=== PATIENT | female | born 1995 | race Two or more races ===

== ENCOUNTER 2017-10-28 00:59 | Observation (INO) | payer OTHER ==
[2017-10-28] MEDS ORDERED: NS 0.9% 1000 ML* 1,000 ML IV ONE (01:18)
[2017-10-28] MEDS ORDERED: Morphine INJ* 4 MG/ML 1 ML CARPUJECT IV ONE ×2 (01:18→01:37)
[2017-10-28] MEDS ORDERED: Ondansetron INJ* 2 MG/ML VIAL IV ONE (01:18)
[2017-10-28 01:29] LABS: ABS Basophils 0.1 10^3/ul (0-0.2); ABS Eosinophils 0 10^3/ul (0-0.6); ABS Lymphocytes 2.4 10^3/ul (1.0-4.8); ABS Monocytes 0.5 10^3/ul (0-0.8); ABS Neutrophils 10.6 10^3/ul (1.5-7.7); ABS Nucleated RBC 0 10^3/ul; Eosinophil % 0.2 % (0-6); Hematocrit 41 % (35-47); Hemoglobin 14.3 g/dl (12.0-16.0); Lymphocyte % 17.8 % (25-47); Mean Corpuscular HGB Conc 35 g/dl (31-36); Mean Corpuscular Hemoglobin 29 pg (27-31); Mean Corpuscular Volume 81 fL (80-97); Mean Platelet Volume 8 um3 (7.4-10.4); Nucleated Red Blood Cells % 0.2; Platelet Count 343 10^3/ul (150-450); Red Blood Count 5.01 10^6/ul (4.0-5.4); Red Cell Distribution Width 14 % (10.5-15); White Blood Count 13.6 10^3/ul (3.5-10.8)
[2017-10-28 01:44] LABS: INR 1.01 (0.77-1.02)
[2017-10-28 01:48] LABS: EGFR Non-African American 67.2 (>60)
--- NOTE | 2017-10-28 02:13 | PN ---
Progress Note - Progress Note Date of Service: 10/28/17 Note: pelvic done by Rosemarie CROWELL external exam normal. speculum exam: scant amount of blood and normal vaginal discharge bimanual: nontender adnexa, nontender cervix, no CMT
[2017-10-28] MEDS ORDERED: Iohexol 300* (CONTRAST) 10 ML SDV IV ONE (03:20)
[2017-10-28 04:20] LABS: Urine Appearance Clear; Urine Blood Negative (Negative); Urine Color Yellow; Urine Ketones 2+ (Negative); Urine Protein Negative (Negative); Urine Specific Gravity 1.039 (1.010-1.030); Urine Urobilinogen Negative (Negative)
[2017-10-28] MEDS ORDERED: oxyCODONE/Acetamin 5/325 MG* TAB PO ONE (06:49)
[2017-10-28 07:03] LABS: Hematocrit 35 % (35-47); Hemoglobin 12.5 g/dl (12.0-16.0); Mean Corpuscular HGB Conc 35 g/dl (31-36); Mean Corpuscular Hemoglobin 29 pg (27-31); Mean Corpuscular Volume 81 fL (80-97); Mean Platelet Volume 8 um3 (7.4-10.4); Platelet Count 290 10^3/ul (150-450); Red Blood Count 4.37 10^6/ul (4.0-5.4); Red Cell Distribution Width 13 % (10.5-15); White Blood Count 22.7 10^3/ul (3.5-10.8)
[2017-10-28 07:59] LABS: Monocytes % 4 % (0-13)
--- NOTE | 2017-10-28 08:09 | RAD ---
INDICATION: Bilateral pelvic pain COMPARISON: Same day CT of the abdomen and pelvis TECHNIQUE: Real-time transabdominal only ultrasound examination of the female pelvis including grayscale and Doppler color flow imaging. FINDINGS: Uterus: The uterus is normal in size and echogenicity measuring 10.2 x 5.3 x 5.3 cm. The endometrial stripe is smooth and uniform measuring 13 mm in thickness. Ovaries: The right and left ovary measure 7.0 x 4.2 x 5.9 cm and 5.2 x 2.2 x 3.4 cm, respectively. Normal arterial and venous waveforms are identified. In the right ovary there is an avascular and heterogeneously echogenic structure measuring 5.0 x 4.4 x 4.1 cm. There is no free fluid in the cul-de-sac. IMPRESSION: Sonographic findings are most consistent with a 5 cm right hemorrhagic/involuting follicle in a woman of this age.
--- NOTE | 2017-10-28 08:17 | RAD ---
CLINICAL HISTORY: Abdominal pain, appendicitis COMPARISON: Ultrasound dated October 28, 2017 TECHNIQUE: Multiple contiguous axial CT scans were obtained of the abdomen and pelvis after the administration of intravenous contrast. Coronal and sagittal multiplanar reformations are submitted for review. Oral contrast was administered. Delayed images were obtained through the abdomen and pelvis. FINDINGS: LUNG BASES: The lung bases are clear. LIVER: The liver is normal in shape, size, contour, and attenuation. BILE DUCTS: There is no intrahepatic or extrahepatic biliary dilatation. GALLBLADDER: The gallbladder is normal, without pericholecystic inflammatory change. PANCREAS: The pancreas is normal, without mass or ductal dilatation. SPLEEN: Normal in size and appearance. UPPER GI TRACT: Evaluation of the gastrointestinal tract is limited by incomplete gastric distention. The upper GI tract is unremarkable. SMALL BOWEL AND MESENTERY: The small bowel is normal in contour, course, and caliber. There is no obstruction or dilatation. COLON: There is post surgical change to the colon. There is gaseous distention of the appendix is at the upper limits of normal in caliber. The tip of the appendix is adjacent to a right ovarian cyst and is not well evaluated, with stranding of the adjacent fat. ADRENALS: Normal bilaterally. KIDNEYS: The kidneys are normal in shape, size, contour, and axis. There is no hydronephrosis or nephrolithiasis. BLADDER: The bladder is smooth in contour. PELVIC ORGANS: There is focal thickening of the endometrium towards the fundus. There is a 4.9 cm right ovarian cyst. The left adnexa appear heterogeneous and somewhat edematous. There is stranding of the pelvic fat diffusely. Gas density is noted within the endocervix. AORTA: The aorta is normal. IVC: Unremarkable LYMPH NODES: There is no lymphadenopathy by size criteria. ABDOMINAL WALL: There is no evidence for abdominal wall hernia. BONES AND SOFT TISSUES: Unremarkable OTHER: There is a small amount of ascites measuring simple fluid in attenuation IMPRESSION: 1. THERE IS A 4.1 CM RIGHT OVARIAN CYST. 2. THERE IS INFLAMMATORY CHANGE WITHIN THE PELVIS, INCLUDING THE LEFT ADNEXA. 3. THERE IS A SMALL AMOUNT OF ASCITES, GREATER THAN EXPECTED FOR PHYSIOLOGIC FLUID. 4. THERE IS GASEOUS DISTENTION OF THE APPENDIX, THOUGH THE TIP OF THE APPENDIX IS NOT WELL VISUALIZED AND IS SURROUNDED BY INFLAMMATORY CHANGE WHICH MAY BE SECONDARY TO THE INFLAMMATORY CHANGES NOTED WITHIN THE PELVIS. 5. THERE IS FOCAL THICKENING OF THE ENDOMETRIUM TOWARDS THE FUNDUS. THERE IS GAS DENSITY WITHIN THE ENDOCERVIX. 6. THE OVERALL IMPRESSION IS OF AN INFLAMMATORY PROCESS CENTERED WITHIN THE PELVIS. THIS IS MOST LIKELY A PRIMARY PELVIC INFLAMMATORY PROCESS, INCLUDING FROM PELVIC INFLAMMATORY DISEASE. THE DIFFERENTIAL DOES INCLUDE INFLAMMATION SECONDARY TO A TIP APPENDICITIS, THOUGH THIS IS CONSIDERED LESS LIKELY. THESE FINDINGS WERE REVIEWED AND DISCUSSED WITH DR. OWEN AT APPROXIMATELY 8:10 AM ON OCTOBER 28, 2017
[2017-10-28] MEDS ORDERED: Ondansetron INJ* 2 MG/ML VIAL IV PRN (10:32)
[2017-10-28] MEDS: DOXYcycline CAP(*) 100 MG PO SCH ×2 (12:01→20:43)
[2017-10-28] MEDS: ceFOXitin 2 GM IVPREMIX* 2 GM/50 ML BAG IVPB SCH ×3 (12:02→23:29)
[2017-10-28] MEDS: Ketorolac INJ* 30 MG/ML 1 ML VIAL IV PUSH PRN ×2 (16:58→23:34)
--- NOTE | 2017-10-28 17:45 | HP ---
HISTORY AND PHYSICAL: DATE OF ADMISSION: 10/28/17 HISTORY OF PRESENT ILLNESS: This patient is a 22-year-old 0 female, who presented tonight with acute onset of right lower quadrant pelvic pain, which started while she was in the shower at about 11 o'clock at night. The patient reports she had no symptoms whatsoever prior to this. She has been feeling well throughout the day and had not ever had pain like this before. The pain was persistent so she presented to the emergency department and at that time, she was still complaining of 9-10/10 pain. The patient denied any fever or chills. She did have emesis x3 during the worst of the pain. The patient's TOWERMAN history is only notable for history of vaginal surgery for resection of a transverse vaginal septum. A second surgery was required with a graft placement. She reports that she was instructed to irrigate the vagina with saline on a regular basis due to discharge from the graft. She irrigated with the saline most recently tonight. The patient denies any sexual activity for about the last year, but she is in a developing relationship. She does not use any contraception at this time. PAST MEDICAL HISTORY: None. PAST SURGICAL HISTORY: Vaginal surgery as above for transverse vaginal septum. PAST OB HISTORY: 0. PAST TOWERMAN HISTORY: No history of sexually transmitted infections and not using any contraception. Currently not sexually active. MEDICATIONS: None. ALLERGIES: No known drug allergies. 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 She denies any tobacco, alcohol, or illicit drug use. REVIEW OF SYSTEMS: General: No fever or chills. No recent fatigue. Cardiovascular: Negative. Respiratory: Negative. GI: Emesis x3, currently without any nausea. : No abnormal discharge other than her what is normal for her. Neuro: Negative. Musculoskeletal: Negative. PHYSICAL EXAMINATION VITAL SIGNS: 97.4, pulse 80, respiratory rate 16, O2 saturation 99% on room air , blood pressure 111/74. GENERAL: The patient is somewhat drowsy after several doses of pain medications , but she is providing a clear history. Appears fairly comfortable in bed. LUNGS: Clear to auscultation bilaterally. CARDIOVASCULAR: Regular rate and rhythm. ABDOMEN: Soft. Diffuse tenderness throughout the abdomen especially in the lower aspect and worst in the right lower quadrant. Bowel sounds positive. NEURO: Acute and oriented x3. PELVIC: Examination deferred as this was already done by previous ER provider. DIAGNOSTIC STUDIES/LAB DATA: On admission, white blood cell count 13.6 with 78 % neutrophils, hematocrit 41, platelets 343. Followup CBC shows white blood cell count of 22.7, 85% neutrophils, hematocrit 35, and platelets 290. HCG negative. Urinalysis with specific gravity of 1.039 and 2+ ketones, otherwise negative. Gonorrhea and chlamydia testing is pending. CT performed noted tip of the appendix with some stranding of fat and gas but no clear signs of acute appendicitis. Right ovary with 4.9-cm cyst. Left adnexa somewhat edematous and there is notation of stranding of pelvic fat consistent with inflammation. No significant lymphadenopathy and focal area of thickening at the fundus of the endometrium. Followup pelvic ultrasound noted a right ovary measuring 7 x 5.9 x 4.2 cm with a 5 x 4.4 x 4.1 likely hemorrhagic cyst, endometrial stripe measured 13 mm. IMPRESSION: A 22-year-old 0 with acute onset of pelvic pain and evidence of pelvic inflammation. The ER physician discussed the patient with Dr. Goff of General Surgery, who reviewed the CT and did not feel there was any significant concern for appendicitis. Otherwise, the most likely apparent cause for the patient's pain and leukocytosis is pelvic inflammatory disease, possibly a tuboovarian abscess. The decrease in hematocrit does not seem consistent with bleeding, but more likely dilutional. PLAN: I discussed the findings with the patient at length today. Considering the patient's pain and potential for tuboovarian abscess, we will admit for IV antibiotics today. We will start with cefoxitin and doxycycline. The patient is very concerned about missing school and classes start again tomorrow morning. She understands we will have to determine how she is doing at that point. If she is significantly improved, we will likely discharge with continued oral antibiotics. I will also discuss the potential for drainage of the cyst versus abscess in the pelvis via Radiology's percutaneous approach. [id number]/[facility] #: [id number] [facility]
[2017-10-28] MEDS: oxyCODONE/Acetamin 5/325 MG* TAB PO PRN (21:26)
--- NOTE | 2017-10-29 04:42 | ED ---
Marii Alex Thomas, scribed for Iraj Figueroa on 10/28/17 at 0118 . Abdominal Pain/Female - HPI Summary HPI Summary: This patient is a 22 year old F presenting to ED with a chief complaint of lower abdominal pain since 0000 today. The pt had a pelvic surgery in the past and did irrigation earlier tonight. The patient rates the pain 10/10 in severity. Symptoms aggravated and alleviated by nothing. Patient reports vomiting three times. Patient denies fever. - History of Current Complaint Chief Complaint: EDAbdPain Stated Complaint: ABD PAIN Time Seen by Provider: 10/28/17 01:07 Hx Obtained From: Patient Onset/Duration: Gradual Onset, Lasting Hours, Still Present Severity Currently: Severe Pain Intensity: 10 Pain Scale Used: 0-10 Numeric Location: Diffuse Aggravating Factor(s): Nothing Alleviating Factor(s): Nothing Associated Signs and Symptoms: Positive: Other: - Patient reports vomiting three times. Patient denies fever. Allergies/Adverse Reactions: Allergies Allergy/AdvReac Type Severity Reaction Status Date / Time No Known Allergies Allergy Verified 10/28/17 01:03 PMH/Surg Hx/FS Hx/Imm Hx Endocrine/Hematology History: Denies: Hx Diabetes Cardiovascular History: Denies: Hx Hypertension Infectious Disease History: No Infectious Disease History: Denies: Traveled Outside the [place] in Last 30 Days - Family History Known Family History: Negative: Hypertension, Diabetes - Social History Alcohol Use: None Hx Tobacco Use: No Review of Systems Negative: Fever Positive: Vomiting All Other Systems Reviewed And Are Negative: Yes Physical Exam - Summary Physical Exam Summary: Appearance: Well appearing, no pain distress Skin: warm, dry, reflects adequate perfusion Head/face: normal Eyes: EOMI, WILIAN ENT: normal Neck: supple, non-tender Respiratory: CTA, breath sounds present Cardiovascular: RRR, pulses symmetrical Abdomen: soft, diffuse tenderness in abdomen Bowel: present Musculoskeletal: normal, strength/ROM intact Neuro: normal, sensory motor intact, A&Ox3 Triage Information Reviewed: Yes Vital Signs On Initial Exam: Initial Vitals Temp Pulse Resp BP Pulse Ox 97.4 F 84 20 99/61 100 10/28/17 00:59 10/28/17 00:59 10/28/17 00:59 10/28/17 00:59 10/28/17 00:59 Vital Signs Reviewed: Yes Diagnostics - Vital Signs Vital Signs Temp Pulse Resp BP Pulse Ox 10/28/17 00:59 97.4 F 84 20 99/61 100 - Laboratory Lab Results: Lab Results 10/28/17 10/28/17 10/28/17 Range/Units 01:15 01:15 01:15 WBC 13.6 H (3.5-10.8) 10^3/ul RBC 5.01 (4.0-5.4) 10^6/ul Hgb 14.3 (12.0-16.0) g/dl Hct 41 (35-47) % MCV 81 (80-97) fL MCH 29 (27-31) pg MCHC 35 (31-36) g/dl RDW 14 (10.5-15) % Plt Count 343 (150-450) 10^3/ul MPV 8 (7.4-10.4) um3 Neut % (Auto) 78.0 (38-83) % Lymph % (Auto) 17.8 L (25-47) % [place] % (Auto) 3.6 (1-9) % Eos % (Auto) 0.2 (0-6) % Baso % (Auto) 0.4 (0-2) % Absolute Neuts (auto) 10.6 H (1.5-7.7) 10^3/ul Absolute Lymphs (auto) 2.4 (1.0-4.8) 10^3/ul Absolute Monos (auto) 0.5 (0-0.8) 10^3/ul Absolute Eos (auto) 0 (0-0.6) 10^3/ul Absolute Basos (auto) 0.1 (0-0.2) 10^3/ul Absolute Nucleated RBC 0 10^3/ul Immature Gran % (0-9) % Neutrophils % (38-83) % Band Neutrophils % (0-8) % Lymphocytes % (25-47) % Reactive Lymphs % (0-6) % Monocytes % (0-13) % Eosinophils % (0-6) % Basophils % (0-2) % Nucleated RBC % 0.2 Abs Neuts (Manual) (1.5-7.7) 10^3/ul Abs Monocytes (Manual) (0-0.8) 10^3/ul Absolute Eos (Manual) (0-0.6) 10^3/ul Abs Basophils (Manual) (0-0.2) 10^3/ul Normal RBC Morphology (Normal) INR (Anticoag Therapy) 1.01 (0.77-1.02) APTT 22.4 L (26.0-36.3) seconds Sodium 135 (133-145) mmol/L Potassium 3.4 L (3.5-5.0) mmol/L Chloride 100 L (101-111) mmol/L Carbon Dioxide 23 (22-32) mmol/L Anion Gap 12 H (2-11) mmol/L BUN 16 (6-24) mg/dL Creatinine 1.02 H (0.51-0.95) mg/dL Est GFR ( Amer) 86.4 (>60) Est GFR (Non-Af Amer) 67.2 (>60) BUN/Creatinine Ratio 15.7 (8-20) Glucose 120 H (70-100) mg/dL Calcium 9.9 (8.6-10.3) mg/dL Total Bilirubin 0.50 (0.2-1.0) mg/dL AST 15 (13-39) U/L ALT 9 (7-52) U/L Alkaline Phosphatase 45 (34-104) U/L Total Protein 7.7 (6.4-8.9) g/dL Albumin 4.4 (3.2-5.2) g/dL Globulin 3.3 (2-4) g/dL Albumin/Globulin Ratio 1.3 (1-3) Lipase 24 (11.0-82.0) U/L Beta HCG, Quant < 0.60 mIU/mL Urine Color Urine Appearance Urine pH (5-9) Ur Specific [place] (1.010-1.030) Urine Protein (Negative) Urine Ketones (Negative) Urine Blood (Negative) Urine Nitrate (Negative) Urine Bilirubin (Negative) Urine Urobilinogen (Negative) Ur Leukocyte Esterase (Negative) Urine Glucose (Negative) Urine Ascorbic Acid (Negative) C.trachomatis (Amp Det) (Negative) N.gonorrhoeae (Amp Det) (Negative) T.vaginalis (Amp Det) (Negative) 10/28/17 10/28/17 10/28/17 Range/Units 02:09 04:10 06:56 WBC 22.7 H (3.5-10.8) 10^3/ul RBC 4.37 (4.0-5.4) 10^6/ul Hgb 12.5 (12.0-16.0) g/dl Hct 35 (35-47) % MCV 81 (80-97) fL MCH 29 (27-31) pg MCHC 35 (31-36) g/dl RDW 13 (10.5-15) % Plt Count 290 (150-450) 10^3/ul MPV 8 (7.4-10.4) um3 Neut % (Auto) Not Reportable (38-83) % Lymph % (Auto) Not Reportable (25-47) % [place] % (Auto) Not Reportable (1-9) % Eos % (Auto) Not Reportable (0-6) % Baso % (Auto) Not Reportable (0-2) % Absolute Neuts (auto) Not Reportable (1.5-7.7) 10^3/ul Absolute Lymphs (auto) Not Reportable (1.0-4.8) 10^3/ul Absolute Monos (auto) Not Reportable (0-0.8) 10^3/ul Absolute Eos (auto) Not Reportable (0-0.6) 10^3/ul Absolute Basos (auto) Not Reportable (0-0.2) 10^3/ul Absolute Nucleated RBC Not Reportable 10^3/ul Immature Gran % 5 (0-9) % Neutrophils % 85 H (38-83) % Band Neutrophils % 5 (0-8) % Lymphocytes % 4 L (25-47) % Reactive Lymphs % 2 (0-6) % Monocytes % 4 (0-13) % Eosinophils % 0 (0-6) % Basophils % 0 (0-2) % Nucleated RBC % Not Reportable Abs Neuts (Manual) 19.3 H (1.5-7.7) 10^3/ul Abs Monocytes (Manual) 0.9 H (0-0.8) 10^3/ul Absolute Eos (Manual) 0 (0-0.6) 10^3/ul Abs Basophils (Manual) 0 (0-0.2) 10^3/ul Normal RBC Morphology Normal (Normal) INR (Anticoag Therapy) (0.77-1.02) APTT (26.0-36.3) seconds Sodium (133-145) mmol/L Potassium (3.5-5.0) mmol/L Chloride (101-111) mmol/L Carbon Dioxide (22-32) mmol/L Anion Gap (2-11) mmol/L BUN (6-24) mg/dL Creatinine (0.51-0.95) mg/dL Est GFR ( Amer) (>60) Est GFR (Non-Af Amer) (>60) BUN/Creatinine Ratio (8-20) Glucose (70-100) mg/dL Calcium (8.6-10.3) mg/dL Total Bilirubin (0.2-1.0) mg/dL AST (13-39) U/L ALT (7-52) U/L Alkaline Phosphatase (34-104) U/L Total Protein (6.4-8.9) g/dL Albumin (3.2-5.2) g/dL Globulin (2-4) g/dL Albumin/Globulin Ratio (1-3) Lipase (11.0-82.0) U/L Beta HCG, Quant mIU/mL Urine Color Yellow Urine Appearance Clear Urine pH 6.0 (5-9) Ur Specific [place] 1.039 H (1.010-1.030) Urine Protein Negative (Negative) Urine Ketones 2+ H (Negative) Urine Blood Negative (Negative) Urine Nitrate Negative (Negative) Urine Bilirubin Negative (Negative) Urine Urobilinogen Negative (Negative) Ur Leukocyte Esterase Negative (Negative) Urine Glucose Negative (Negative) Urine Ascorbic Acid * H (Negative) C.trachomatis (Amp Det) Negative (Negative) N.gonorrhoeae (Amp Det) Negative (Negative) T.vaginalis (Amp Det) Negative (Negative) Result Diagrams: 10/28/17 06:56 10/28/17 01:15 Lab Statement: Any lab studies that have been ordered have been reviewed, and results considered in the medical decision making process. - CT abd/pelvis CT Interpretation Completed By: Radiologist - CT abd/pelvis reveals 4.4 cm right ovarian cyst. Small free fluid cul-de-sac, left adnexa and Morisons pouch , probably physiologic. Slightly irregular endometrial stripe contour at uterine fundus, possibly arcuate uterus. Surgical changes proximal sigmoid color. No bowel obstruction, colitis or free air. Normal appendix. Unremarked pancreas, kidneys and gallbladder. Transitional lumbosacral vertebra. ED physician has reviewed this radiology report. - Additional Comments Diagnostic Additional Comments: Pelvic Ultrasound: Interpreted by radiologist. Impression: No ovarian torsion. Color flow bilterally with appropriate arterial and venous waveforms on the right and arterial waveforms on the left. Enlarged right ovary measuring 7.0 x 5.9 x 4.2 cm and containing a 5.0 x 4.4 x 4.1 cm hemorrhagic cyst. Slightly enlarged left ovary, 5.2 x 3.4 x 2.2 cm. No free fluid. Normal uterus. Endometrial stripe complex 13 mm thick. Bladder not well seen. Patient declined transvaginal exam. Dr. Figueroa has reviewed this report. Abdominal Pain Fem Course/Dx - Course Course Of Treatment: This patient is a 22 year old F presenting to ED with a chief complaint of lower abdominal pain since 0000 today. Radiology included a CT abd/pelvis and a US pelvic, both reveal a right ovarian cyst. In the ED course the patient was given morphine and Zofran. I consulted with THU Palma, who advises repeat CBC and further observation. The patient will be a sign out to Dr. Duran pending labs. - Diagnoses Differential Diagnosis: Positive: Appendicitis, Diverticulitis, Ovarian Cyst, Renal Colic, Urinary Tract Infection Provider Diagnoses: PID (acute pelvic inflammatory disease) - Provider Notifications Discussed Care Of Patient With: Nancy Chauhan Time Discussed With Above Provider: 06:53 Instructed by Provider To: Other - THU Palam, advises repeat CBC and further observation. Discharge - Discharge Plan Condition: Stable Disposition: OTHER Discharge Disposition Comment: Sign out to Dr. Duran pending labs. The documentation as recorded by the Marii lr Thomas accurately reflects the service I personally performed and the decisions made by me, Iraj Figueroa.
[2017-10-29] MEDS: ceFOXitin 2 GM IVPREMIX* 2 GM/50 ML BAG IVPB SCH ×4 (05:34→23:26)
[2017-10-29 05:56] LABS: ABS Basophils 0 10^3/ul (0-0.2); ABS Eosinophils 0.3 10^3/ul (0-0.6); ABS Lymphocytes 1.6 10^3/ul (1.0-4.8); ABS Monocytes 1.1 10^3/ul (0-0.8); ABS Neutrophils 11.8 10^3/ul (1.5-7.7); ABS Nucleated RBC 0 10^3/ul; Eosinophil % 1.9 % (0-6); Hematocrit 33 % (35-47); Hemoglobin 11.6 g/dl (12.0-16.0); Lymphocyte % 10.5 % (25-47); Mean Corpuscular HGB Conc 35 g/dl (31-36); Mean Corpuscular Hemoglobin 29 pg (27-31); Mean Corpuscular Volume 82 fL (80-97); Mean Platelet Volume 8 um3 (7.4-10.4); Nucleated Red Blood Cells % 0.2; Platelet Count 250 10^3/ul (150-450); Red Blood Count 4.01 10^6/ul (4.0-5.4); Red Cell Distribution Width 13 % (10.5-15); White Blood Count 14.8 10^3/ul (3.5-10.8)
--- NOTE | 2017-10-29 08:38 | PN ---
Progress Note - Progress Note Date of Service: 10/29/17 SOAP: Subjective: []22 yo with tentative diagnosis of pid. pt feeling a little better this am . pain is improved though still present. + flatus. pt anxious to leave for classes [place] . Objective: [vss afebrile] abdomen soft but tender especially in rlq + BS. WBC DOWN TO 14 FROM 22. GC /CHLAMYDIA /TRICH IS NEGAtive Assessment: []resolving pid Plan: []best if pt stays for 48hr iv antibiotics . pt would like to be discharged later today. explained that full 48 hrs would make it less likely to be readmitted. will reassess her this evening. will switch from toradol to motrin today. will call in oral regimen
[2017-10-29] MEDS: DOXYcycline CAP(*) 100 MG PO SCH ×2 (09:28→20:24)
[2017-10-29] MEDS: Ibuprofen TAB* 600 MG PO PRN ×3 (09:31→23:30)
--- NOTE | 2017-10-29 17:38 | ED ---
Robin Alex Angela, scribed for Yoni Duran MD on 10/28/17 at 0719 . Progress - Progress Note Progress Note: This pt was signed out by Dr. Figueroa, pending disposition, awaiting repeat CBC. Pt is a 22 y/o female presenting to [facility] c/o lower abdominal pain since 0000 today. The pt had a pelvic surgery in the past and did irrigation earlier tonight. Physical Exam: VITAL SIGNS: Reviewed. GENERAL: Patient is a well-developed and nourished female who is lying comfortable in the stretcher. Patient is not in any acute respiratory distress. HEAD AND FACE: Normocephalic and atraumatic. EYES: PERRLA, EOMI x 2, No injected conjunctiva. EARS: Hearing grossly intact. Ear canals and tympanic membranes are WNL. MOUTH: Oropharynx within normal limits. NECK: Supple, trachea is midline, no adenopathy, no JVD. CHEST: Symmetric, no tenderness at palpation LUNGS: Clear to auscultation bilaterally. No wheezing or crackles. CVS: RRR, S1 and S2 present, no murmurs or gallops appreciated. ABDOMEN: Soft. RUQ tenderness with guarding without rebound. No signs of distention. Positive bowel sounds. No masses palpated. No abdominal bruit or pulsations. EXTREMITIES: FROM in all major joints, no edema, no cyanosis or clubbing. NEURO: Alert and oriented x 3. No acute neurological deficits. Speech is normal. SKIN: Dry and warm Pt will be admitted to [facility], in stable condition, with a diagnosis of PID. Condition: Stable Disposition: Admit to [facility] - Results/Orders Results/Orders: Abdomen/pelvis CT, as read by radiologist: IMPRESSION: 1. There is a 4.1 cm right ovarian cyst. 2. There is inflammatory change within the pelvis, including the left adnexa. 3. There is a small amount of ascites, greater than expected for physiologic fluid. 4. There is gaseous distension of the appendix, though the tip of the appendix is not well visualized and is surrounded by inflammatory change which may be secondary to the inflammatory changes noted within the pelvis. 5. There is focal thickening of the endometrium towards the fundus. There is gas density within the endocervix. 6. The overall impression is of an inflammatory process centered within the pelvis, this is most likely a primary pelvic inflammatory process, including from pelvic inflammatory disease. The differential does include inflammation secondary to a tip of appendicitis. Though this is considered less likely. These findings were reviewed and discussed with Dr. Duran at approximately 8:10 AM on October 28, 2017. US Pelvis, as read by radiologist: IMPRESSION: sonographic findings are most consistent with a 5 cm right hemorrhagic/ involuting follicle in a woman of this age. Dr. Duran has reviewed this radiology report. Re-Evaluation - Re-Evaluation First Eval Re-Evaluation Time: 08:11 Comment: Pt notes her pain is better now, rated 1/10 in severity. Third Eval Re-Evaluation Time: 10:30 Comment: Dr. Scott in to evaluate the pt. Course/Dx - Course Course Of Treatment: This pt was signed out by Dr. Figueroa to follow up on the second CBC. The pt came in complaining of lower abd pain for which she had an US of the pelvis and abdomen/pelvis CT. Abdomen/Pelvis CT: 1. There is a 4.1 cm right ovarian cyst. 2. There is inflammatory change within the pelvis, including the left adnexa. 3. There is a small amount of ascites, greater than expected for physiologic fluid. 4. There is gaseous distension of the appendix, though the tip of the appendix is not well visualized and is surrounded by inflammatory change which may be secondary to the inflammatory changes noted within the pelvis. 5. There is focal thickening of the endometrium towards the fundus. There is gas density within the endocervix. 6. The overall impression is of an inflammatory process centered within the pelvis, this is most likely a primary pelvic inflammatory process, including from pelvic inflammatory disease. The differential does include inflammation secondary to a tip of appendicitis. Though this is considered less likely. These findings were reviewed and discussed with Dr. Duran at approximately 8:10 AM on October 28, 2017. US Pelvis shows sonographic findings are most consistent with a 5 cm right hemorrhagic/involuting follicle in a woman of this age. Since the pt is c /o RUQ pain I discussed the case with Dr. Goff, and he reports the pt does not have appendicitis. Therefore I discussed pt care with Dr. Scott who came and assessed the pt. After his assessment he reports the pt may be developing a PID. He will accept pt to his services and place the pt on antibiotics. Pt is hemodynamically stable, alert and oriented x3. - Diagnoses Provider Diagnoses: PID (acute pelvic inflammatory disease) - Provider Notifications Discussed Care Of Patient With: Radiologist Time Discussed With Above Provider: 08:05 Instructed by Provider To: Other - Radiologist reports that the US looks like the pt may have a PID. [08:15] I discussed pt care with Dr. Scott, [employer], who recommends consulting surgery. [08:33] I spoke with Dr. Goff, surgeon, who reviewed the CT and US and reports that this is not appendicitis. [08:37] I discusssed case again with Dr. Scott, [employer], who will come see the pt in the ED. The documentation as recorded by the Robin lr Angela accurately reflects the service I personally performed and the decisions made by me, Yoni Duran MD.
[2017-10-29] MEDS: oxyCODONE/Acetamin 5/325 MG* TAB PO PRN (22:11)
[2017-10-30] MEDS: ceFOXitin 2 GM IVPREMIX* 2 GM/50 ML BAG IVPB SCH (05:37)
[2017-10-30 05:39] VITALS: BP 82/42
[2017-10-30] MEDS: DOXYcycline CAP(*) 100 MG PO SCH (07:15)
== END 2017-10-30 07:40 | disposition home or self-care (01) ==
LOC: ED 00:59 → INTOOBSV 10:28 → SSU 10:28
PROVIDERS: ADMIT Obstetrics & Gynecology; ATTEND Obstetrics & Gynecology
DX: N73.9 Female pelvic inflammatory disease, unspecified (principal); R10.31 Right lower quadrant pain; N83.201 Unspecified ovarian cyst, right side; R18.8 Other ascites
CPT/HCPCS: 36415; 74177; 76856; 80053; 81003; 83690; 84702; 85025; 85610; 85730; 86703; 87480; 87491; 87510; 87591; 87661; 96361; 96374; 96375; 96376; 99283; A9270-GY; G0378; J0694; J1885; J2270; J2405; Q9967